=== PATIENT | female | born 1990 | race Two or more races ===

== ENCOUNTER 2017-02-12 18:09 | Emergency (ER) | payer MEDICAID, OTHER ==
[~2017-02-12] VITALS: Ht 154.9 cm; Wt 68.0 kg
[2017-02-12 19:50] LABS: Basophils # (auto) 0.1 uL; Basophils % (auto) 0.4 % (0.0-2.0); Eosinophils # (auto) 0.5 uL; Eosinophils % (auto) 4.7 % (0.0-7.0); Hematocrit 41.4 % (36.0-46.0); Hemoglobin 13.8 g/dL (12.2-16.2); Lymphocytes % (auto) 26.6 % (10.0-50.0); Mean Corpuscular Hemoglobin 28.9 pg (28.0-32.0); Mean Corpuscular Hgb Conc. 33.4 g/dL (32.0-36.0); Mean Corpuscular Volume 86.5 fL (80.0-100.0); Mean Platelet Volume 9.5 fL (7.4-10.4); Monocytes # (auto) 0.5 uL; Monocytes % (auto) 4.8 % (0.0-12.0); Neutrophils # (auto) 7.2 uL; Neutrophils % (auto) 63.5 % (37.0-80.0); Platelet Count (auto) 258 10^3/uL (140-450); Red Cell Distribution Width 13.4 % (11.6-16.0); White Blood Cell 11.4 10^3/uL (4.4-10.8)
[2017-02-12 19:52] LABS: Urine RBC None Seen /hpf (0 - 4)
[2017-02-12 20:41] LABS: Urine Bilirubin Negative (Negative); Urine Blood Negative /uL (Negative); Urine Color Yellow (Yellow); Urine Glucose Normal (Normal); Urine Ketone Negative (Negative); Urine Nitrite Negative (Negative); Urine Squamous Epithelial Cell FEW /hpf (<5); Urine Urobilinogen Normal (Negative); Urine pH 6.5 (5.0-8.0)
[2017-02-13 02:33] LABS: Albumin 3.9 g/dL (3.4-5.0); BUN/Creatinine Ratio 13.3; Calcium 8.6 mg/dL (8.5-10.1)
[2017-02-13 02:35] LABS: Total Protein 8.3 g/dL (6.4-8.2)
[2017-02-13 05:11] VITALS: BP 107/68
== END 2017-02-13 05:19 | disposition home or self-care (01) ==
LOC: ER 18:09
DX: N94.89 Other specified conditions associated with female genital organs and menstrual cycle (principal); N39.0 Urinary tract infection, site not specified
CPT/HCPCS: 36415; 76801; 76817; 80053; 80307; 81001; 83690; 84702; 85025